=== PATIENT | female | born 1990 | race Caucasian/White ===

== ENCOUNTER 2018-06-25 22:01 | Emergency (ER) | payer MEDICAID, OTHER ==
[~2018-06-25] VITALS: Ht 165.1 cm; Wt 59.0 kg
[2018-06-25 22:13] VITALS: BP 131/80
[2018-06-25] MEDS ORDERED: FAMOTIDINE 20 MG TABLET PO ONE (23:00)
[2018-06-25] MEDS ORDERED: ACETAMINOPHEN 500 MG TABLET PO ONE (23:00)
[2018-06-25] MEDS ORDERED: ONDANSETRON ODT 4 MG PO ONE (23:00)
[2018-06-25 23:23] LABS: BASOPHILS % (AUTO) 0 % (0-1); EOSINOPHILS # (AUTO) 0.05 x10^3/uL (0-0.4); EOSINOPHILS % (AUTO) 1 % (1-7); LYMPHOCYTES # (AUTO) 0.26 x10^3/uL (1-3.4); LYMPHOCYTES % (AUTO) 4 % (22-44); MD NO; MEAN CORPUSCULAR HEMOGLOBIN 31.7 pg (27.0-34.8); MEAN CORPUSCULAR HGB CONC 34.3 g/dL (32.4-35.8); MEAN CORPUSCULAR VOLUME 92.4 fL (80-100); MEAN PLATELET VOLUME 7.2 fL (7.4-10.4); MONOCYTES # (AUTO) 0.15 x10^3/uL (0.2-0.8); MONOCYTES % (AUTO) 2 % (2-9); NEUTROPHILS # (AUTO) 6.38 x10^3/uL (1.8-6.8); NEUTROPHILS % (AUTO) 93 % (42-75); PLATELET COUNT 186 x10^3/uL (130-400); RED BLOOD COUNT 4.69 x10^6/uL (3.82-5.3); RED CELL DISTRIBUTION WIDTH 13.4 % (9.6-15.2)
[2018-06-25 23:34] LABS: ALANINE AMINOTRANSFERASE 30 U/L (12-78); ALBUMIN 3.6 g/dL (3.4-5.0); ANION GAP 7 mmol/L (5-15); CALCIUM 8.4 mg/dL (8.5-10.1); CHLORIDE 109 mmol/L (98-107)
[2018-06-25 23:39] LABS: ALKALINE PHOSPHATASE 56 U/L (45-117); BILIRUBIN,TOTAL 1.1 mg/dL (0.2-1.0); CREATININE 0.79 mg/dL (0.55-1.02); TOTAL PROTEIN 6.7 g/dL (6.4-8.2)
[2018-06-26] MEDS ORDERED: ACETAMINOPHEN 500 MG TABLET ONE (00:26)
[2018-06-26] MEDS ORDERED: ONDANSETRON ODT 4 MG ONE (00:26)
[2018-06-26] MEDS ORDERED: FAMOTIDINE 20 MG TABLET ONE (00:26)
== END 2018-06-26 02:06 | disposition home or self-care (01) ==
LOC: ED 23:31
DX: A08.4 Viral intestinal infection, unspecified (principal); R30.0 Dysuria
CPT/HCPCS: 36415; 76700; 80053; 83690; 84703; 85025; 99285; Q0162

== ENCOUNTER 2018-12-13 11:27 | Emergency (ER) | payer MEDICAID ==
[~2018-12-13] VITALS: Ht 165.1 cm; Wt 59.1 kg
[2018-12-13] MEDS ORDERED: PHENAZOPYRIDINE 200 MG TABLET PO ONE (12:00)
--- NOTE | 2018-12-13 12:56 | NUR ---
[employer]: PT TO ROOM FROM [facility]
[2018-12-13] MEDS ORDERED: PHENAZOPYRIDINE 200 MG TABLET ONE (13:01)
--- NOTE | 2018-12-13 13:09 | NUR ---
PT AMBULATORY TO ROOM 15 W/ C/O LBP STARTED A FEW DAYS AGO AND WENT AWAY. PT STATES YESTERDAY SHE HAD "INCREDIBLE PAIN IN MY BLADDER FELT LIKE I PEED MY PANTS". PT RESTING ON GURNEYMAR. CARRIE. WARM BLANKET PROVIDED.
[2018-12-13 13:13] VITALS: BP 124/85
[2018-12-13 13:27] LABS: HCG UR SG 1.025 (1.003-1.030)
[2018-12-13 13:28] LABS: CULTURE INDICATED? YES; MICROSCOPIC INDICATED
== END 2018-12-13 14:11 | disposition home or self-care (01) ==
LOC: ED 13:33
DX: N30.00 Acute cystitis without hematuria (principal)
CPT/HCPCS: 81001; 81025; 87086; 99283

== ENCOUNTER 2019-04-04 00:55 | Emergency (ER) | payer MEDICAID ==
[~2019-04-04] VITALS: Ht 165.1 cm; Wt 60.7 kg
[2019-04-04 02:00] LABS: HCG UR SG 1.024 (1.003-1.030); MICROSCOPIC AUTO
[2019-04-04 02:01] LABS: CULTURE INDICATED? YES
[2019-04-04 03:48] VITALS: BP 119/74
== END 2019-04-04 03:49 | disposition home or self-care (01) ==
LOC: ED 01:34
DX: O98.511 Other viral diseases complicating pregnancy, first trimester (principal); B34.9 Viral infection, unspecified; Z3A.11 11 weeks gestation of pregnancy
CPT/HCPCS: 36415; 71046; 76801; 81001; 81025; 84702; 87086; 99284

== ENCOUNTER 2019-10-16 21:24 | Emergency (ER) | payer MEDICAID ==
[~2019-10-16] VITALS: Ht 162.6 cm; Wt 70.6 kg
[2019-10-17 00:04] LABS: BASOPHILS # (AUTO) 0.04 x10^3/uL (0-0.1); BASOPHILS % (AUTO) 1 % (0-1); EOSINOPHILS # (AUTO) 0.17 x10^3/uL (0-0.4); EOSINOPHILS % (AUTO) 3 % (1-7); LYMPHOCYTES # (AUTO) 2.42 x10^3/uL (1-3.4); LYMPHOCYTES % (AUTO) 41 % (22-44); MD NO; MEAN CORPUSCULAR HEMOGLOBIN 26.9 pg (27.0-34.8); MEAN CORPUSCULAR HGB CONC 32.2 g/dL (32.4-35.8); MEAN CORPUSCULAR VOLUME 83.5 fL (80-100); MEAN PLATELET VOLUME 7.7 fL (7.4-10.4); MONOCYTES # (AUTO) 0.48 x10^3/uL (0.2-0.8); MONOCYTES % (AUTO) 8 % (2-9); NEUTROPHILS # (AUTO) 2.76 x10^3/uL (1.8-6.8); NEUTROPHILS % (AUTO) 47 % (42-75); PLATELET COUNT 282 x10^3/uL (130-400); RED BLOOD COUNT 4.01 x10^6/uL (3.82-5.3); RED CELL DISTRIBUTION WIDTH 13.6 % (9.6-15.2)
[2019-10-17 00:12] LABS: ALANINE AMINOTRANSFERASE 32 U/L (12-78); ALBUMIN 3.8 g/dL (3.4-5.0); ANION GAP 5 mmol/L (5-15); CALCIUM 8.9 mg/dL (8.5-10.1); CHLORIDE 110 mmol/L (98-107); CREATININE 0.85 mg/dL (0.55-1.02)
[2019-10-17 00:15] LABS: ALKALINE PHOSPHATASE 80 U/L (45-117); BILIRUBIN,TOTAL 0.2 mg/dL (0.2-1.0); TOTAL PROTEIN 7.1 g/dL (6.4-8.2)
--- NOTE | 2019-10-17 00:39 | NUR ---
CALLED FOR RECHECK OF VITALS. NIL.
--- NOTE | 2019-10-17 00:45 | NUR ---
pt to room from lobby
--- NOTE | 2019-10-17 00:55 | NUR ---
THIS IS A 29 YO FEMALE THAT WAS HOSPITALIZED AT [facility] September FOR PERIODONTAL DISEASE AFTER GIVING TO DAUGHTER, AND WAS TREATED WITH VANCOMYCIN. PATIENT STATES "I'M NOW FEELING THE SAME I WAS BACK THEN, IT'S LIKE COLD-LIKE SYMPTOMS, BODY ACHES AND CHILLS, I HAD A FEVER BEFORE, AND MY TEETH ARE HURTING". PATIENT STATES "I JUST WANT MY TEETH PULLED OUT OR SOMETHING". PATIENT HAS HX OF ASTHMA, DEPRESSION AND BIPOLAR DISORDER, HAD D&C FOR PLACENTA AFTER GIVING IN SEPTEMBER, NO OTHER COMPLICATIONS. PATIENT HAD BLOOD CULTURES X2 DRAWN NAD LABS DRAWN IN TRIAGE/LOBBY. VSS, NO FEVER IN TRIAGE, NAD, CALL LIGHT IN REACH, CONNECTED TO SPO2 AND BP MONITORS. DENIES NEEDS AT THIS TIME
[2019-10-17] MEDS ORDERED: SODIUM CHLORIDE 0.9% 1,000ML IVBOLUS ONE (01:30)
--- NOTE | 2019-10-17 02:13 | NUR ---
REPORT GIVEN TO DAGO ARAIZA. PLAN OF CARE DISCUSSED.
--- NOTE | 2019-10-17 02:48 | NUR ---
PIV ESTABLISHED. IVF HUNG. MOTHER AT BEDSIDE TO TAKE DAUGHTER HOME. PT RESTING COMFORTABLY IN GURNEY. DENIES NEEDS
--- NOTE | 2019-10-17 03:21 | NUR ---
PT WITH MANY QUESTIONS ABOUT HER CARE. PT REQUESTING TO SPEAK WITH MD. MD INFORMED.
--- NOTE | 2019-10-17 03:51 | NUR ---
PT AWOKEN FOR DC. PT VERY DISSATISFIED ABOUT BEING DC'D. POC DISCUSSED. PT REFUSED TO REPEAT BACK DC TEACHINGS.
[2019-10-17 03:52] VITALS: BP 129/74
== END 2019-10-17 03:54 | disposition home or self-care (01) ==
LOC: ED 10-17 03:41
DX: K02.9 Dental caries, unspecified (principal); E86.0 Dehydration
CPT/HCPCS: 36415; 80053; 83605; 85025; 87040; 99283; J7030